=== PATIENT | female | born 1985 | race Caucasian/White ===

== ENCOUNTER 2019-08-24 10:04 | Inpatient (IN) | payer BC, OTHER ==
[2019-08-24] MEDS ORDERED: Buffered Lidocaine 1% SYRIN* 1 ML/SYRINGE INTRADERM ONE (11:05)
[2019-08-24] MEDS ORDERED: Lactated Ringers 1000 ML Bag* 1,000 ML IV ONE ×2 (11:05→16:18)
--- NOTE | 2019-08-24 11:20 | HP ---
General Information - Reason for Visit Pt reports ctx starting at 0500 this morning, increasing in strength and intensity - General Information Maternal Age: 34 Grav: 1 Para: 0 SAB: 0 IEA: 0 Estimated Due Date: 08/22/19 Determined By: LMP Gestational Age in Weeks/Days: 40 2/7 Maternal Blood Type and Rh: B Positive - Results this Serology/RPR Result: Non-Reactive Rubella Result: Immune HBsAg Result: Negative HIV Result: Negative GBS Culture Result: Negative Past Medical History Delivery History: See Records - Primigravida Pertinent Past Medical History: See Records - migraine, bartholin gland cyst Pertinent Past Surgical History: See Records - elbow surgery Pertinent Family History: Non-Contributory - Antepartal Records Antepartal Records: Reviewed, Complicated by: - 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) Review of Systems Constitutional: Uncomfortable CV Complaint: No Respiratory: Shortness of Breath: No Gastrointestinal: No Nausea/Vomiting Genitourinary: No Dysuria, No Bleeding, No Leaking Fluid Musculoskeletal: No Epigastric Pain, Contractions Neurological: No Headache, No Visual Changes Movement: Normal Exam Allergies/Adverse Reactions: Allergies No Known Allergies Allergy (Verified 08/24/19 10:32) T-98.4, P-76, R-18, BP-120/74, O2-100% - Measurements Height: 5 ft 6 in Weight: 83.461 kg Weight in lbs: 184.844299 Body Mass Index (BMI): 29.7 Pre- Weight: 66.224 kg Weight Gained This : 38 lbs and 0 ozs - Exam Breast: Breast Exam Deferred CVA: No CVA Tenderness Extremities: No Edema Heart: Normal Rhythm/Heart Sounds HEENT: No Significant Findings Lungs: Clear Bilaterally Rectal: Rectal Exam Deferred Reflexes: DTR 2+ Thyroid: No Thyromegaly - Abdominal Exam Abdomen Exam: Non-Tender, Fundal Height Consistent with Dates - Ultrasound/Biophysical Profile Ultrasound Status: Not Done Targeted Exam Findings See L&D Outpatient Visit Provider Note for Findings: N/A Estimated Weight: 7.5# Cervical Exam: 3cm Effacement: 80% Station: -1 Presenting Part: Vertex Membrane Status: Intact Bleeding/Discharge: None EFM Findings - External Monitor Findings Baseline Heart Rate: 130 External Monitor Findings: Accelerations Present, No Pattern of Variable or Late Decelerations, Variability Moderate, Baseline Stable Contractions: Regular, Mild, Moderate, 45-90 Seconds Contraction Frequency: 3-4 Assessment/Plan - Assessment 34 year old at 40 2/7 weeks gestation, GBS negative, in early active labor , membranes intact. No evidence of acidemia. - Plan Plan: Admit - Anticipate Vaginal Delivery - Date/Time of Admission Date of Admission: 08/24/19 Time of Admission: 11:03
[2019-08-24 11:26] LABS: Urine Benzodiazepine Screen None Detected (None Detect); Urine Opiates Screen None Detected (None Detect)
[2019-08-24] MEDS ORDERED: Lactated Ringers 1000 ML Bag* 1,000 ML IV SCH ×2 (12:00→17:00)
--- NOTE | 2019-08-24 12:35 | PN ---
Progress Note - Progress Note Date of Service: 08/24/19 SOAP: Subjective: Pt using tub, reports it helps alleviate pain. Coping well with ctx. Objective: Cervical exam deferred FHR: 130 per doppler UCs: about every 5 minutes Assessment: Pt appears to be in active labor. No evidence of acidemia Plan: Expectant management. Labor support and comfort measures as needed.
--- NOTE | 2019-08-24 14:27 | PN ---
Progress Note - Progress Note Date of Service: 08/24/19 SOAP: Subjective: Pt increasingly uncomfortable with ctx, coping well. at bedside. Objective: Cervix: 4cm/ 80%/ -1/ vtx FHR: Baseline 120/ moderate variability/ + accels/ no decels UCs: 2-3 minutes Membranes intact Temp: 97.9 BP: 137/80 Assessment: Pt in active labor, no evidence of acidemia. Requesting pain relief. Plan: Discussed options for pain relief including tub, nitrous oxide, epidural. Pt would like to try nitrous, but may want epidural at some point, so will start IV now.
[2019-08-24 14:52] LABS: ABS Monocytes 0.3 10^3/ul (0-0.8); ABS Neutrophils 12.9 10^3/ul (1.5-7.7); Eosinophil % 0.1 %; Hematocrit 34 % (35-47); Hemoglobin 11.4 g/dL (12.0-16.0); Lymphocyte % 7.3 %; Mean Corpuscular HGB Conc 34 g/dL (31-36); Mean Corpuscular Hemoglobin 29 pg (27-31); Mean Corpuscular Volume 86 fL (80-97); Mean Platelet Volume 8.2 fL (7.4-10.4); Platelet Count 238 10^3/uL (150-450); Red Blood Count 3.95 10^6 /uL (3.70-4.87); Red Cell Distribution Width 14 % (10-15); White Blood Count 14.3 10^3/uL (3.5-10.8)
[2019-08-24] MEDS ORDERED: OBEPIDURAL* 250 ML EPIDURAL ONE (14:53)
--- NOTE | 2019-08-24 15:39 | PN ---
Progress Note - Progress Note Date of Service: 08/24/19 SOAP: Subjective: Pt reports still feeling ctx, but they feel "less strong than before." Objective: Cervix: 3cm/ 80%/ 0 station/ vtx UCs: 2-3 minutes FHR: Baseline 130/ moderate variability/ + accels/ no decels Pitocin at 14 mu/min Fluid clear post AROM Assessment: Pt still in early labor, no evidence of acidemia, undergoing elective Pitocin induction at 40 4/7 weeks gestation. Plan: Discussed options with pt. Recommendd considering AROM at this time, as it has been > 4 hours since last dose of abx, head well applied. Pt agreed. AROM performed without difficulty, pt tolerated well. Anticipate progression to active labor and .
[2019-08-24] MEDS ORDERED: Sodium Citrate/Citric Acid* 15 ML UDC PO PRN (16:18)
[2019-08-24] MEDS ORDERED: Phenylephrine 40 MCG/ML SYRINGE IV PUSH PRN (16:18)
[2019-08-24] MEDS ORDERED: OBEPIDURAL* 250 ML EPIDURAL SCH (17:00)
--- NOTE | 2019-08-24 17:03 | PN ---
Progress Note - Progress Note Date of Service: 08/24/19 SOAP: Subjective: Pt comfortable with epidural, happy with decision. was concerned about epidural, attempted to dissuade pt from getting it, but he appears to be accepting at this time. Objective: FHR: Baseline 140/ moderate variability/ no accels/ some variable decels UCs: 2-3 minutes BP: 96/60 Cervix: 5-6cm/ 100%/ -1/ vtx Assessment: Pt comfortable post epidural. FHR tracing Category II, doubt acidemia. Perhaps d/t maternal hypotension post epidural. Plan: Administer phenylephrine per anesthesia orders to correct hypotension, fluid bolus. Position changes. Closely monitor FHR.
[2019-08-24] MEDS: Phenylephrine 40 MCG/ML SYRINGE IV PUSH PRN ×3 (17:11→17:30)
--- NOTE | 2019-08-24 19:44 | PN ---
Progress Note - Progress Note Date of Service: 08/24/19 SOAP: Subjective: Pt comfortable with epidural, dozing intermittently. Objective: FHR: Baseline 150/ moderate variability/ no accels/ occasional late decels UCs: 3-5 minutes Membranes intact BP: 119/69 Cervix: 6cm/ 100%/ 0 station Assessment: Pt making steady progress, comfortable with epidural. FHR Category II at times. acidemia unlikely based on moderate variability. BPs now stable post epidural. Plan: Continue to change positions frequently, IV bolus as needed, O2 if needed. Anticipate progression to .
[2019-08-24] MEDS ORDERED: Acetaminophen TAB* 325 MG PO ONE (21:32)
--- NOTE | 2019-08-24 22:40 | PN ---
Progress Note - Progress Note Date of Service: 08/24/19 SOAP: Subjective: Pt remains comfortable with epidural, although has small window on left lower abdomen. Reports some rectal pressure with ctx. Pt reports mild headache. Objective: Temp: 98.3 (down from 100.3 previously) FHR: Baseline 160/ moderate variability/ + accels/ occasional late and early decels UCs: 3-5 minutes Cervix: 9 cm/ 100%/ +1/ bulging bag Assessment: Pt making good progress. Temp improved with IV hydration, and membranes intact, so unlikely to have chorioamnionitis. FHR not currently reflective of acidemia. Plan: Continue to change positions regularly. Anticipate progression to full dilation and . Waiting on AROM for now due to continued progress and FHR decelerations.
[2019-08-25] MEDS ORDERED: Oxytocin in LR* 20 UNITS/1,000 ML BAG IVPB ONE (01:58)
[2019-08-25] MEDS ORDERED: Glycerin ADULT SUPP PR PRN (03:12)
[2019-08-25] MEDS ORDERED: Witch Hazel PAD* JAR TOPICAL PRN (03:12)
[2019-08-25] MEDS ORDERED: Dibucaine 1% 28.35 GM TUBE PR PRN (03:12)
[2019-08-25] MEDS ORDERED: Acetaminophen TAB* 325 MG PO PRN (03:12)
[2019-08-25] MEDS ORDERED: Lactated Ringers 1000 ML Bag* 1,000 ML IV SCH (04:00)
[2019-08-25] MEDS ORDERED: Oxytocin in LR* 20 UNITS/1,000 ML BAG IVPB SCH (04:00)
--- NOTE | 2019-08-25 04:10 | PROCNOTE ---
[facility] OB: Delivery Note - Delivery A Date of : 08/25/19 Time of : 02:29 [place] Sex: Female Weight at : 3.159 kg Score 1 Minute: 8 Score 5 Minutes: 8 Gestational Age in Weeks and Days at Delivery: 40 Weeks and 3 Days Delivery Method: Spontaneous Vaginal Labor: Spontaneous Did Patient attempt ?: N/A, No Previous Amniotic Fluid: Meconium Estimated Blood Loss: 300 Anesthesia/Analgesia: CEI for Labor Delivered By: Roshni Sung Nursery Level of Nursery: NICU - Perineum Perineal Injury: Abrasion Only - Not Repaired Perineal Repair: None - Events Delivery Events of Note: Pitocin Only After Delivery, Supplemental O2 to Mother , Maternal Temperature during Labor - Additional Delivery Notes Additional Delivery Notes: Pt admitted to Labor and Delivery in early active labor at 1020 on 08/25/19. On arrival FHR was Category I. Initially pt used tub and position changes for pain relief, and was monitored intermittently per hospital policy. Eventually pt became more uncomfortable and requested and received an epidural with good relief of pain around 1550. About 30 minutes after epidural placement pt had some hypotension and FHR exhibited some late decelerations, which were treated with phenylephrine, position changes, and IV bolus. At that time pt had dilated to 6cm and FHR tracing improved following interventions. However, pt continued to have periods where FHR tracing exhibited late decelerations, with good return to baseline and most of the time moderate variability. Pt made good progress in dilation. At 2038 pt had temp of 100.3 but at next check at 2125 temp was 99.0, then at 2152 it was 98.2. At that time pt was given Tylenol for headache. By 2207 pt was 8-9 cm dilated, at which time FHR showed moderate variability, + accels, and a baseline of 160. At 2239 SROM occurred during cervical exam, revealing meconium stained fluid. By 2299 FHR tracing was again experiencing recurrent late decels, which improved somewhat but did not fully resolve with position changes. At 0 pt had temp of 100.4, but when rechecked at 0044, temp was 99.6. Pt began pushing at 0052, pushed effectively. Deep decelerations noted with pushing, as well as rising baseline. Tosser Dr. Briceño was notified and presence requested for the . OB Dr. Burks notified of FHR tracing, which he had observed previously, and he came to the pt 's bedside. As pt was pushing effectively with good descent, decision made to continue pushing rather than instrumental vaginal delivery. At 0228 pt delivered a baby girl, OA to JAIR. Shoulders followed head without difficulty. Infant initially placed on maternal abdomen, dried and stimulated with wet but vigorous cry. Apgars 8/8. Soon after cord was clamped x2 and cut by 's father, and transferred to the warmer for evaluation by Neonatology. transferred to NICU for further treatment due to low O2 sats. Placenta soon delivered, spontaneous and meeta. Initial bleeding brisk, but good response to Pitocin and fundal massage. Overall EBL 300 cc. Inspection of the perineum revealed small hemostatic periurethral abrasion, not repaired. At this time, pt in NICU to visit , infant on room air but still needing CPAP. Pt pumping, anticipate normal course for her.
[2019-08-25] MEDS ORDERED: Lidocaine 1% INJ* 10 MG/ML 30 ML SDV ONE (05:01)
[2019-08-25] MEDS: Ibuprofen TAB* 600 MG PO PRN ×3 (05:03→20:25)
[2019-08-25] MEDS: Docusate CAP* 100 MG PO SCH ×3 (09:11→20:26)
[2019-08-26 06:26] LABS: ABS Eosinophils 0.2 10^3/ul (0-0.6); ABS Monocytes 0.6 10^3/ul (0-0.8); Eosinophil % 1.1 %; Hematocrit 30 % (35-47); Hemoglobin 10.5 g/dL (12.0-16.0); Lymphocyte % 12.7 %; Mean Corpuscular HGB Conc 35 g/dL (31-36); Mean Corpuscular Hemoglobin 30 pg (27-31); Mean Corpuscular Volume 86 fL (80-97); Mean Platelet Volume 8.2 fL (7.4-10.4); Platelet Count 203 10^3/uL (150-450); Red Blood Count 3.51 10^6 /uL (3.70-4.87); Red Cell Distribution Width 14 % (10-15); White Blood Count 15.8 10^3/uL (3.5-10.8)
[2019-08-26] MEDS: Docusate CAP* 100 MG PO SCH ×4 (09:43→19:55)
[2019-08-26] MEDS: Ibuprofen TAB* 600 MG PO PRN ×3 (09:43→19:55)
[2019-08-26] MEDS: Ferrous Gluconate TAB* 324 MG TAB PO SCH (19:57)
[2019-08-27] MEDS: Ibuprofen TAB* 600 MG PO PRN ×2 (06:31→12:22)
[2019-08-27] MEDS: Ferrous Gluconate TAB* 324 MG TAB PO SCH (08:10)
[2019-08-27 08:16] VITALS: BP 110/61
[2019-08-27] MEDS: Docusate CAP* 100 MG PO SCH (09:08)
== END 2019-08-27 15:40 | disposition home or self-care (01) | DRG 806 ==
LOC: MCHOBOUT 10:04 → MCHOB 11:03
PROVIDERS: ADMIT Midwife; ATTEND Midwife
PROC: 10E0XZZ Delivery of Products of Conception, External Approach (ICD-10-PCS; principal; 2019-08-25)
PROC: 10907ZC Drainage of Amniotic Fluid, Therapeutic from Products of Conception, Via Natural or Artificial Opening (ICD-10-PCS; 2019-08-25)
DX: O48.0 Post-term pregnancy (principal); O75.2 Pyrexia during labor, not elsewhere classified; Z37.0 Single live birth; O98.52 Other viral diseases complicating childbirth; B00.9 Herpesviral infection, unspecified; O70.0 First degree perineal laceration during delivery; O77.0 Labor and delivery complicated by meconium in amniotic fluid; O76 Abnormality in fetal heart rate and rhythm complicating labor and delivery; O26.53 Maternal hypotension syndrome, third trimester; Z3A.40 40 weeks gestation of pregnancy
CPT/HCPCS: 36415; 80307; 85025; 86850; 86900; 86901; 87070; 87077; 87186; 88307; A9270-GY; G0480

== ENCOUNTER 2021-11-04 00:17 | Inpatient (IN) ==
[2021-11-04] MEDS ORDERED: Lactated Ringers 1000 ml BAG 1,000 ML IV ONE (01:12)
[2021-11-04] MEDS ORDERED: Buffered Lidocaine 1% SYRIN 1 ml INTRADERM ONE (01:12)
[2021-11-04] MEDS ORDERED: Nalbuphine 10 MG/ML 1 ML VIAL IV PRN (01:31)
[2021-11-04] MEDS ORDERED: Nalbuphine 10 MG/ML 1 ML VIAL IM PRN (01:32)
[2021-11-04] MEDS ORDERED: Promethazine INJ(RESTRICTED) 25 MG/ML 1 ml VIAL IM PRN (01:33)
[2021-11-04] MEDS ORDERED: Lactated Ringers 1000 ml BAG 1,000 ML IV SCH ×2 (02:00→06:00)
[2021-11-04 02:21] LABS: Urine Benzodiazepine Screen None Detected (None Detect); Urine Cannabinoids Screen None Detected (None Detect); Urine Opiates Screen None Detected (None Detect)
[2021-11-04] MEDS ORDERED: OBEPIDURAL (200 ML) 200 ML EPIDURAL ONE (02:38)
[2021-11-04 02:40] LABS: ABS Monocytes 0.5 10^3/ul (0-0.8); ABS Neutrophils 7.5 10^3/ul (1.5-7.7); Eosinophil % 0.5 %; Hematocrit 36 % (35-47); Hemoglobin 12.5 g/dL (12.0-16.0); Lymphocyte % 19.6 %; Mean Corpuscular HGB Conc 35 g/dL (31-36); Mean Corpuscular Hemoglobin 31 pg (27-31); Mean Corpuscular Volume 88 fL (80-97); Mean Platelet Volume 8.5 fL (7.4-10.4); Platelet Count 210 10^3/uL (150-450); Red Blood Count 4.08 10^6 /uL (3.70-4.87); Red Cell Distribution Width 14 % (10-15)
[2021-11-04] MEDS ORDERED: Oxytocin in LR 20 UNITS/1,000 ML BAG IVPB ONE (03:19)
[2021-11-04] MEDS ORDERED: Phenylephrine 40 mcg/mL 10mL (400mcg) SYRINGE IV PUSH PRN (03:19)
[2021-11-04] MEDS ORDERED: Sodium Citrate/Citric Acid LIQ 15 ML UDC PO PRN (03:19)
[2021-11-04] MEDS ORDERED: OBEPIDURAL (200 ML) 200 ML EPIDURAL SCH (04:00)
[2021-11-04 04:46] LABS: Urine Appearance Clear; Urine Bilirubin Negative (Negative); Urine Blood 2+ (Negative); Urine Color Yellow; Urine Glucose Negative (Negative); Urine Ketones 1+ (Negative); Urine Nitrite Negative (Negative); Urine Protein Negative (Negative); Urine Specific Gravity 1.017 (1.002-1.030); Urine Urobilinogen Negative (Negative)
[2021-11-04 04:49] LABS: Urine Bacteria Absent (Absent); Urine Red Blood Cell 2+(6-10/hpf) (Absent); Urine White Blood Cell Trace(0-5/hpf) (Absent)
[2021-11-04] MEDS ORDERED: Dibucaine 1% OINT 28.35 GM TUBE PR PRN (05:31)
[2021-11-04] MEDS ORDERED: Witch Hazel PAD JAR TOPICAL PRN (05:31)
[2021-11-04] MEDS ORDERED: Oxytocin in LR 20 UNITS/1,000 ML BAG IVPB SCH (06:00)
[2021-11-04] MEDS ORDERED: Varicella Virus Vaccine Live 0.5 ML VIAL SUBCUT ONE (09:00)
[2021-11-04] MEDS ORDERED: Measles, Mumps,Rubella VACC 0.5 ML/VIAL SUBCUT ONE (09:00)
[2021-11-05 05:44] VITALS: BP 118/72
[2021-11-05 05:57] LABS: ABS Eosinophils 0.1 10^3/ul (0-0.6); ABS Lymphocytes 1.6 10^3/ul (1.0-4.8); ABS Monocytes 0.4 10^3/ul (0-0.8); ABS Neutrophils 7.3 10^3/ul (1.5-7.7); Eosinophil % 0.8 %; Hematocrit 34 % (35-47); Hemoglobin 11.5 g/dL (12.0-16.0); Lymphocyte % 17.5 %; Mean Corpuscular HGB Conc 34 g/dL (31-36); Mean Corpuscular Hemoglobin 30 pg (27-31); Mean Corpuscular Volume 89 fL (80-97); Mean Platelet Volume 8.2 fL (7.4-10.4); Platelet Count 169 10^3/uL (150-450); Red Blood Count 3.81 10^6 /uL (3.70-4.87); Red Cell Distribution Width 14 % (10-15); White Blood Count 9.4 10^3/uL (3.5-10.8)
[2021-11-05] MEDS ORDERED: Varicella Virus Vaccine Live 0.5 ML VIAL SUBCUT ONE (12:00)
[2021-11-05] MEDS ORDERED: Measles, Mumps,Rubella VACC 0.5 ML/VIAL SUBCUT ONE (12:00)
== END 2021-11-05 14:00 | disposition home or self-care (01) | DRG 560 ==
LOC: MCHOBOUT 00:17 → MCHOB 01:32
PROVIDERS: ADMIT Midwife; ATTEND Midwife